=== PATIENT | female | born 1960 | race Caucasian/White ===

== ENCOUNTER 2016-11-19 07:48 | Emergency (ER) | payer OTHER ==
[2016-11-19 08:01] VITALS: BP 105/85; PULSE 95; RESP 20; O2SAT 95
[2016-11-19 08:16] LABS: COLOR YELLOW; LEUKOCYTE ESTERASE,URINE NEGATIVE (NEGATIVE); NITRITE,URINE NEGATIVE (NEGATIVE); PH,URINE 5.5 (5.0-7.5)
[2016-11-19 08:27] VITALS: TEMP 98.6
--- NOTE | 2016-11-19 08:27 | UCPHY ---
H & P Time Seen by Provider: 11/19/16 08:08 Patient Type: Established HPI/ROS: This patient presents with a chief complaint of frequency, urgency and dysuria which began 2 or 3 days ago. She was seen 2 days ago any pending culture shows no growth at 18 hours. On reviewing this patient's previous records she has multiple visits for urinary tract infections some of which had culture showing less than 2000 colonies. Her symptoms began with a feeling of malaise and fatigue without fever. She denies any URI symptoms but does have nausea but no actual vomiting or abdominal pain. She has had increased frequency of stooling without pepito diarrhea. She denies vaginal discharge or irritation and does not believe that she has a vaginitis. The patient has rheumatoid arthritis and has been using and brawl but has had none for 3 and half months. She has had several recent surgeries. REVIEW OF SYSTEMS: Constitutional: Fatigue and malaise, no fever Eyes: No symptoms ENT: Denies sore throat, nasal congestion Respiratory: No cough no shortness of breath Cardiac: No chest pain Gastrointestinal: Nausea without vomiting but no abdominal pain or diarrhea Genitourinary: See above Musculoskeletal: No myalgias Skin: No rash Neurological: No headache Smoking Status: Never smoked Physical Exam: GENERAL: Well-appearing, well-nourished and in no acute distress. HEAD: Atraumatic, normocephalic. LUNGS: No respiratory distress ABDOMEN: Soft, nontender, No guarding, no rebound. No masses appreciated. EXTREMITIES: Normal range of motion, no pitting or edema. No clubbing or cyanosis. NEUROLOGICAL: Cranial nerves II through XII grossly intact. Normal speech, normal gait. PSYCH: Normal mood, normal affect. SKIN: Warm, dry, normal turgor, no visible rashes or lesions. Constitutional: Initial Vital Signs Temperature (C) 37.5 C 11/19/16 07:59 Heart Rate 95 11/19/16 07:59 Respiratory Rate 20 11/19/16 07:59 Blood Pressure 105/85 H 11/19/16 07:59 O2 Sat (%) 95 11/19/16 07:59 O2 Delivery Mode Room Air Allergies/Adverse Reactions: nitrofurantoin [From Macrobid] Allergy (Verified 11/19/16 07:59) nitrofurantoin macrocrystalline [From Macrobid] Allergy (Verified 11/19/16 07:59 ) Home Medications: Medication Instructions Recorded Crestor 10/28/16 Xanax 10/28/16 Medical Decision Making Differential Diagnosis: I do not believe that this patient has a urinary tract infection based on her previous culture but also on today's urinalysis. I do not believe that her symptoms are secondary to a vaginitis. She was advised to stop taking her Cipro and to see a urologist for further evaluation of her dysuria. - Data Points Laboratory Results: 11/19/16 08:00 Urine Color YELLOW Urine Appearance CLEAR Urine pH 5.5 (5.0-7.5) Ur Specific Foley 1.010 (1.002-1.030) Urine Protein NEGATIVE (NEGATIVE) Urine Ketones NEGATIVE (NEGATIVE) Urine Blood TRACE H (NEGATIVE) Urine Nitrate NEGATIVE (NEGATIVE) Urine Bilirubin NEGATIVE (NEGATIVE) Urine Urobilinogen 0.2 EU (0.2-1.0) Ur Leukocyte Esterase NEGATIVE (NEGATIVE) Urine RBC Pending Urine WBC Pending Ur Epithelial Cells Pending Urine Glucose NEGATIVE (NEGATIVE) Departure - Departure Disposition: Home, Routine, Self-Care Clinical Impression: Dysuria Condition: Good Instructions: Dysuria (ED) Additional Instructions: It is important to follow up with the urologist concerning your ongoing symptoms. Keep herself well hydrated but do not force herself to eat. Try [id number] azo for the burning you are experiencing and I would suggest that he stop the antibiotics since the culture done on the is showing no growth. I suspect your symptoms are not related to a urinary tract infection but to some other cause. Referrals: Shannon Mccormick MD [Medical Doctor] - As per Instructions Sesra Soni MD [Medical Doctor] - As per Instructions - PQRS PQRS Measurement: Not applicable
[2016-11-19 08:28] LABS: AMORPHOUS 1+ /hpf (NONE-1+); BACTERIA TRACE /hpf (NONE SEEN)
== END 2016-11-19 08:30 | disposition home or self-care (01) ==
LOC: CED 07:48
DX: R30.0 Dysuria (principal); Z87.440 Personal history of urinary (tract) infections
CPT/HCPCS: 81003-PO; 81015-PO; 99214-PO; G0463-PO